=== PATIENT | male | born 1955 | race Caucasian/White ===

== ENCOUNTER 2016-06-25 08:02 | Observation (INO) | payer BC ==
[2016-06-25 08:53] LABS: HEMOGLOBIN 15.4 gm/dl (14.0-17.5); RED BLOOD COUNT 5.16 M/UL (4.20-5.50); WHITE BLOOD COUNT 6.5 K/UL (4.5-11.0)
[2016-06-25 09:12] LABS: BUN/CREATININE RATIO 11 (0-10)
[2016-06-25] MEDS ORDERED: IBUPROFEN800 MG PO (16:43)
[2016-06-25] MEDS ORDERED: LISINOPRIL20 MG PO (16:43)
[2016-06-25] MEDS ORDERED: PROTONIX20 MG PO (16:43)
[2016-06-26 04:44] LABS: HEMOGLOBIN 15.1 gm/dl (14.0-17.5); RED BLOOD COUNT 5.04 M/UL (4.20-5.50); WHITE BLOOD COUNT 7.9 K/UL (4.5-11.0)
[2016-06-26 05:25] LABS: BUN/CREATININE RATIO 19 (0-10)
[2016-06-26] MEDS ORDERED: ASPIRIN EC325 MG PO (16:45)
[2016-06-26] MEDS ORDERED: LOPRESSOR 25 MG25 MG PO (16:47)
[2016-06-26] MEDS ORDERED: CRESTOR10 MG PO (16:48)
[2016-08-11] MEDS ORDERED: ISOSORBIDE DINI30 MG PO (07:48)
[2016-08-11] MEDS ORDERED: CHANTIX1 EACH PO (10:14)
== END 2016-06-26 18:05 | disposition home or self-care (01) ==
LOC: ER1 08:02 → ZEROF 13:55 → MED SURG 4 13:55
PROVIDERS: Emergency Medicine; Physician Assistant; ADMIT Internal Medicine
DX: R07.9 Chest pain, unspecified (principal); I10 Essential (primary) hypertension; I25.10 Atherosclerotic heart disease of native coronary artery without angina pectoris; M19.90 Unspecified osteoarthritis, unspecified site; M54.9 Dorsalgia, unspecified; G89.29 Other chronic pain; K21.9 Gastro-esophageal reflux disease without esophagitis; F17.210 Nicotine dependence, cigarettes, uncomplicated; Z90.89 Acquired absence of other organs; Z90.49 Acquired absence of other specified parts of digestive tract; Z79.899 Other long term (current) drug therapy; Z82.49 Family history of ischemic heart disease and other diseases of the circulatory system
CPT/HCPCS: ECHO; 36415; 70450; 71010; 78452; 80048; 80053; 80061; 82550; 82553; 83735; 83874; 84484; 85025; 85027; 93005; 93017; 93306; 94640; 94664; 99285; A9502; G0378; J2785

== ENCOUNTER → 2016-08-10 | Outpatient (CLI) | payer BC ==
[~2016-08-10] MED LIST: ASPIRIN EC325 MG PO; CHANTIX1 EACH PO; CRESTOR10 MG PO; IBUPROFEN800 MG PO; ISOSORBIDE DINI30 MG PO; LISINOPRIL20 MG PO; LOPRESSOR 25 MG25 MG PO; PROTONIX20 MG PO
[2016-08-10 11:05] LABS: HEMOGLOBIN 14.8 gm/dl (14.0-17.5); RED BLOOD COUNT 4.96 M/UL (4.20-5.50); WHITE BLOOD COUNT 8.1 K/UL (4.5-11.0)
[2016-08-10 11:21] LABS: BUN/CREATININE RATIO 23 (0-10)
== END ==
LOC: LAB 10:24
PROVIDERS: Internal Medicine Interventional Cardiology
DX: Z01.810 Encounter for preprocedural cardiovascular examination (principal)
CPT/HCPCS: 36415; 80048; 85025; 85610; 85730; 93005

== ENCOUNTER → 2016-08-11 | Outpatient (CLI) | payer BC | END | disposition home or self-care (01) | LOC: CATH 06:17 | DX: I25.118 Atherosclerotic heart disease of native coronary artery with other forms of angina pectoris (principal); R94.39 Abnormal result of other cardiovascular function study; I51.89 Other ill-defined heart diseases; J44.9 Chronic obstructive pulmonary disease, unspecified; I10 Essential (primary) hypertension; F17.210 Nicotine dependence, cigarettes, uncomplicated; E78.5 Hyperlipidemia, unspecified; Z79.82 Long term (current) use of aspirin; Z79.899 Other long term (current) drug therapy; R07.9 Chest pain, unspecified; M19.90 Unspecified osteoarthritis, unspecified site; J45.909 Unspecified asthma, uncomplicated | CPT/HCPCS: C1769; C1887; J0583; J1644; J2250; J3010; J7030; Q0163; Q9963 ==